=== PATIENT | female | born 2000 | race Caucasian/White ===

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

== ENCOUNTER 2021-02-25 13:35 | Outpatient (CLI) | payer SELFPAY ==
[~2021-02-25] VITALS: Ht 162.6 cm; Wt 58.8 kg
[2021-02-25 14:00] VITALS: BP 113/64
== END 2021-02-25 14:45 ==
LOC: WSo 13:35 → LDRP 13:36 → WSo 14:45
PROVIDERS: ATTEND Family Medicine
DX: O42.913 Preterm premature rupture of membranes, unspecified as to length of time between rupture and onset of labor, third trimester (principal); Z3A.35 35 weeks gestation of pregnancy
CPT/HCPCS: 99213

== ENCOUNTER 2021-03-12 19:50 | Outpatient (CLI) | payer MEDICAID ==
[~2021-03-12] VITALS: Ht 162.6 cm; Wt 59.9 kg
[2021-03-12 20:07] VITALS: BP 127/73
[2021-03-12 20:16] LABS: BILIRUBIN,URINE NEGATIVE (NEGATIVE); CLARITY,URINE CLEAR; COLOR,URINE YELLOW; GLUCOSE, URINE (UA) NEGATIVE (NEGATIVE); KETONES,URINE NEGATIVE (NEGATIVE); LEUKOCYTE ESTERASE ,URINE 2+ (NEGATIVE); NITRITE,URINE NEGATIVE (NEGATIVE); PROTEIN,URINE NEGATIVE (NEGATIVE)
[2021-03-12 20:52] LABS: BACTERIA,URINE MODERATE /HPF
[2021-03-12 20:53] LABS: SQUAMOUS EPITHELIAL CELL,UR 25-50 /HPF
--- NOTE | 2021-03-13 07:54 | Physician Query-Final Dx ---
NELLY03/13/21 0754: Clinic Account Progress/Dx Physician Query: Please give diagnosis Please include # weeks gestation Date of Service Mar 12, 2021 at 19:50 LARISSA JI MD 03/13/21 1422: Clinic Account Progress/Dx DIAGNOSIS: Diagnosis Term intrauterine at 38 weeks gestation Contractions without active labor NELLY,MarMar 13, 2021 07:54 LARISSA JI MD Mar 13, 2021 14:22
== END 2021-03-12 22:33 | disposition home or self-care (01) ==
LOC: LDRP 19:50 → WSo 19:50
PROVIDERS: ATTEND Family Medicine
DX: O46.93 Antepartum hemorrhage, unspecified, third trimester (principal); Z3A.38 38 weeks gestation of pregnancy
CPT/HCPCS: 81000; 87088

== ENCOUNTER 2021-03-14 19:32 | Inpatient (IN) | payer MEDICAID ==
[2021-03-14] VITALS (15 sets, daily range): BP systolic 119–136; BP diastolic 63–91
[~2021-03-14] VITALS: Ht 162.6 cm; Wt 59.9 kg
[2021-03-14] MEDS ORDERED: D5 LR IV SOLUTION 1,000 ML IV ONE (20:03)
[2021-03-14 20:13] LABS: BILIRUBIN,URINE NEGATIVE (NEGATIVE); CLARITY,URINE CLEAR; COLOR,URINE YELLOW; GLUCOSE, URINE (UA) NEGATIVE (NEGATIVE); KETONES,URINE NEGATIVE (NEGATIVE); LEUKOCYTE ESTERASE ,URINE 2+ (NEGATIVE); NITRITE,URINE NEGATIVE (NEGATIVE); PROTEIN,URINE NEGATIVE (NEGATIVE)
[2021-03-14] MEDS ORDERED: BUTORPHANOL INJ 2 MG/ML (STADOL) VIAL IV PRN (20:15)
[2021-03-14] MEDS ORDERED: D5 LR IV SOLUTION 1,000 ML IV SCH (20:15)
[2021-03-14 20:23] LABS: BASOPHILS % (AUTO) 0 % (0-10); MEAN PLATELET VOLUME 13.7 fL (9.0-12.2); NEUTROPHILS # (AUTO) 6.3 10^3/uL (1.8-7.8)
[2021-03-14 20:24] LABS: EOSINOPHILS % (AUTO) 0 % (0-10); HEMATOCRIT 38 % (35-52); HEMOGLOBIN 12.9 g/dL (11.5-16.0); LYMPHOCYTES # (AUTO) 1.5 10^3/uL (1.0-4.0); LYMPHOCYTES % (AUTO) 18 % (12-44); MEAN CORPUSCULAR HEMOGLOBIN 31 pg (25-34); MEAN CORPUSCULAR HGB CONC 34 g/dL (32-36); MEAN CORPUSCULAR VOLUME 91 fL (80-99); MONOCYTES # (AUTO) 0.5 10^3/uL (0.0-1.0); MONOCYTES % (AUTO) 6 % (0-12); NEUTROPHILS % (AUTO) 75 % (42-75); PLATELET COUNT 131 10^3/uL (130-400); WHITE BLOOD COUNT 8.3 10^3/uL (4.3-11.0)
[2021-03-14] MEDS ORDERED: BUTORPHANOL INJ 2 MG/ML (STADOL) VIAL ONE (20:26)
--- NOTE | 2021-03-14 20:31 | History & Physical-OB ---
OB - Chief Complaint & HPI Date/Time Date of Admission: Date of Admission: Date seen by a Provider: Mar 14, 2021 Time Seen by a Provider: 20:15 Chief Complaint/History OB-Reason for Admission/Chief: Onset of Labor Hx : 1 Hx Para: 0 Expected Date of Delivery: Mar 26, 2021 Gestational Age in Weeks: 38 Gestational Age in Days: 2 Admission Nurse Assessment Rev: Yes History of Labs GBS negative Allergies and Home Medications Allergies Coded Allergies: No Known Drug Allergies (Unverified , 01/31/18) Patient Home Medication List Home Medication List Reviewed: Yes No Active Prescriptions or Reported Meds OB - History Hx of Present Care: Yes Ultrasounds: Normal mid trimester US Obstetrical Complications: None Medical Complications: None Patient Past Medical History no chronic medical problems Social History/Family History 2nd Hand Smoke Exposure: No Immunizations Tetanus Booster (TDap): Unknown OB - Admission Exam Physical Exam Vitals: Vital Signs 03/14/21 19:50 Temp 36.1 Pulse 76 Resp 18 Pulse Ox 99 O2 Delivery Room Air HEENT: Moist Membranes Heart: Rhythm Normal Lungs: Clear Abdomen: Gravid Extremities: Normal Reflexes: Normal Cervical Dilatation: 6cm (on presentation) Effacement: 75% Station: -2 Membranes: Intact Accelerations: Accelerations Present Decelerations: No Decelerations Short Term Variability: Present [facility] Variability: Average (6-25) Contractions on Admission: < 5 Minutes Apart Intensity: Moderate Labs Laboratory Tests Test 03/14/21 19:45 03/14/21 20:11 Range/Units OB - Assessment/Plan/Diagnosis Assessment Assessment: active labor (at 38w2d) Admission Dx 1. IUP at term 38w2d Admission Status: Inpatient Order (span 2 midnights) Reason for Inpatient Admission: L&D Plan Plan: Expectant Management Other Plan -stadol 1mg q2hr prn pain YASIR WIGGINS MD Mar 14, 2021 20:31
[2021-03-14 20:51] LABS: BACTERIA,URINE NEGATIVE /HPF; RBC,URINE 0-2 /HPF
[2021-03-14] MEDS ORDERED: fentaNYL 2 mcg/ml BUPIVA 0.125 100 ML ONE (20:54)
[2021-03-14] MEDS ORDERED: fentaNYL INJ 100 MCG/2 ML AMP ONE (21:31)
[2021-03-14] MEDS ORDERED: BUPIVACAINE 0.25% 30 ML (SENSORCAINE) VIAL ONE (21:31)
[2021-03-14] MEDS ORDERED: CATHETER FLUSH 10 ML SYR IV SCH (22:00)
[2021-03-14] MEDS ORDERED: EPIDURAL (fentaNYL 2 MCG/ML BUPIVA 0.125%)100 ML BAG EPI PRN (22:15)
[2021-03-14] MEDS ORDERED: NALOXONE 0.4 MG/ML 1 ML (NARCAN) VIAL IV PRN (22:15)
[2021-03-14] MEDS ORDERED: LACTATED RINGERS 1,000 ML IV SCH (22:15)
[2021-03-14] MEDS ORDERED: ONDANSETRON 4 MG/2 ML (SDV) Z0FRAN IV PRN (22:15)
[2021-03-14] MEDS ORDERED: diphenhydrAMINE 50 MG/ML INJ (BENADRYL) IV PRN (22:15)
[2021-03-15] VITALS (13 sets, daily range): BP systolic 108–139; BP diastolic 55–80
[2021-03-15] MEDS ORDERED: MINERAL OIL CONCENTRATE 99.9% 15 ML UDC ONE (03:49)
[2021-03-15] MEDS ORDERED: MEPIVACAINE (CARBOCAINE) 2% 50 ML VIAL ONE (03:49)
[2021-03-15] MEDS ORDERED: OXYTOCIN PRE-MIX DRIP 500 ML IV ONE (03:49)
--- NOTE | 2021-03-15 05:03 | OB Labor & Delivery Record ---
L&D History Date of Service Date of Service: Mar 15, 2021 History Expected Date of Delivery: Mar 26, 2021 Gestational Age in Weeks: 38 Hx : 1 Hx Para: 1 Complications Events: Routine care Operative Indications (Cesarea: N/A-Vaginal Delivery Intrapartal Events: None L&D Stage1 Stage One Onset of Labor - Date: Mar 14, 2021 Onset of Labor - Time: 18:00 Monitors and Tracing Monitor Mode: External Heart Rate: 150 Monitor Accelerations: Uniform Monitor Decelerations: Variable Station: 0 Half-Way Variability: Average (6-10) Short Term Variability: Present Presentation: Vertex Vital Signs VS - Last 72 Hours, by Label 03/14/21 03/14/21 03/14/21 03/14/21 19:50 20:25 20:55 21:06 Temp 36.1 36.6 36.6 Pulse 76 88 87 88 Resp 18 18 18 18 B/P (MAP) 131/72 (91) 127/83 (98) Pulse Ox 99 99 99 O2 Delivery Room Air Room Air Room Air 03/14/21 03/14/21 03/14/21 03/14/21 21:07 21:35 21:39 21:48 Temp 36.6 Pulse 88 85 83 85 Resp 18 18 18 18 B/P (MAP) 129/83 (98) 136/85 (102) 131/89 (103) Pulse Ox 99 99 99 99 O2 Delivery Room Air 03/14/21 03/14/21 03/14/21 03/14/21 21:51 21:53 21:57 22:05 Pulse 86 97 83 83 Resp 18 18 18 18 B/P (MAP) 128/85 (99) 132/78 (96) 130/82 (98) 119/64 (82) Pulse Ox 100 100 99 100 03/14/21 03/14/21 03/14/21 03/15/21 22:10 22:15 23:20 00:20 Temp 36.5 36.4 Pulse 84 97 82 89 Resp 18 18 18 18 B/P (MAP) 124/66 (85) 135/63 (87) 122/71 (88) 117/70 (86) Pulse Ox 100 100 100 100 03/15/21 03/15/21 03/15/21 02:05 02:50 03:15 Temp 37.0 37.0 37.6 Pulse 96 86 Resp 18 18 B/P (MAP) 119/71 (87) 117/72 (87) Pulse Ox 100 Signs of Distress by FHT Signs of Distress no Rupture of Membranes Spontaneous Ruture of Membrane: No Amniotic Membrane Rupture Time: 211 Amniotic Membrane Fluid Desc.: Clear Induction/Anesthesia Epidural Cath Placement - Time: 2150 L&D Stage2 Stage Two Stage II Date: Mar 15, 2021 Stage II Time: 04:29 Monitors and Tracing Monitor Mode: Internal Heart Rate: 150 Monitor Accelerations: Uniform Monitor Decelerations: Variable Snowblower Mechanic Variability: Average (6-10) Short Term Variability: Present Position: Right Occiput Anterior Presentation: Vertex Signs of Distress by FHT Signs of Distress no Cord Descript/Complications Cord Vessel Description: 3 Vessels Delivery Type Infant Delivery Method: Spontaneous Vaginal Anterior Shoulder: Right Episiotomy/Perineal Laceration Laceraction(s)/Extensions: Yes Episiotomy Description: Midline, Vaginal Extension/lac (L) Sutures Used: Vicryl Condition of Delivery 1 minute Comment: 8 5 minute Comment: 9 Condition of Infant Condition of : Living Exam: No Observed Abnormalities Resuscitation Resuscitation: N/A - Spontaneous Resp L&D Stage3 Stage Three Stage III Date: Mar 15, 2021 Stage III Time: 04:34 Pictocin Pitocin ml/hr: 125 Placenta Delivery Placenta Delivery: Spontaneous Delivery Summary Summary Estimated blood loss (mL): 200 Condition of Delivery Examined: Cervix Examined Post Hemorrhage: No Intervention Required none, uterine massage YASIR WIGGINS MD Mar 15, 2021 05:03
[2021-03-15] MEDS ORDERED: IBUPROFEN 600 MG (MOTRIN) TAB PO ONE (05:09)
[2021-03-15] MEDS ORDERED: BENZOCAINE/MENTHOL (DERMOPLAST) 56 ML CAN TP ONE (05:09)
[2021-03-15] MEDS ORDERED: BENZOCAINE/MENTHOL (DERMOPLAST) 56 ML CAN TP PRN ×2 (05:15→05:45)
[2021-03-15] MEDS: IBUPROFEN 600 MG (MOTRIN) TAB PO SCH ×3 (05:15→20:38)
[2021-03-15] MEDS ORDERED: OXYTOCIN PRE-MIX DRIP 500 ML IV SCH (05:15)
[2021-03-15] MEDS ORDERED: WITCH HAZEL(TUCKS) 40 EA JAR TOP PRN (05:15)
[2021-03-15] MEDS ORDERED: TETANUS,DIPTH,PERTUSS P/F (BOOSTRIX) 0.5 ML VIAL IM ONE (05:15)
[2021-03-15] MEDS ORDERED: NALOXONE 0.4 MG/ML 1 ML (NARCAN) VIAL IV PRN (05:15)
[2021-03-15] MEDS ORDERED: MEASLES,MUMPS,RUBELLA 1 EA INJ SQ ONE (05:15)
[2021-03-15] MEDS: CATHETER FLUSH 10 ML SYR IV SCH ×3 (06:48→22:06)
[2021-03-15] MEDS: ACETAMINOPHEN 500 MG TAB (TYLENOL) PO SCH ×3 (10:15→20:49)
[2021-03-15] MEDS: DOCUSATE SODIUM 100 MG (COLACE) CAP PO SCH ×2 (10:15→20:38)
[2021-03-16] MEDS: ACETAMINOPHEN 500 MG TAB (TYLENOL) PO SCH ×2 (02:40→08:39)
[2021-03-16] MEDS: IBUPROFEN 600 MG (MOTRIN) TAB PO SCH ×2 (02:41→08:39)
[2021-03-16 02:49] VITALS: BP 115/77
[2021-03-16] MEDS: CATHETER FLUSH 10 ML SYR IV SCH (06:03)
[2021-03-16 07:37] LABS: EOSINOPHILS # (AUTO) 0.1 10^3/uL (0.0-0.3); MEAN CORPUSCULAR VOLUME 92 fL (80-99)
[2021-03-16 07:39] LABS: BASOPHILS % (AUTO) 0 % (0-10); EOSINOPHILS % (AUTO) 1 % (0-10); HEMATOCRIT 29 % (35-52); HEMOGLOBIN 9.9 g/dL (11.5-16.0); LYMPHOCYTES # (AUTO) 1.5 10^3/uL (1.0-4.0); LYMPHOCYTES % (AUTO) 18 % (12-44); MEAN CORPUSCULAR HEMOGLOBIN 31 pg (25-34); MEAN CORPUSCULAR HGB CONC 34 g/dL (32-36); MONOCYTES # (AUTO) 0.5 10^3/uL (0.0-1.0); MONOCYTES % (AUTO) 6 % (0-12); NEUTROPHILS # (AUTO) 6.2 10^3/uL (1.8-7.8); NEUTROPHILS % (AUTO) 74 % (42-75); PLATELET COUNT 106 10^3/uL (130-400); WHITE BLOOD COUNT 8.4 10^3/uL (4.3-11.0)
[2021-03-16 08:37] VITALS: BP 118/71
[2021-03-16] MEDS: DOCUSATE SODIUM 100 MG (COLACE) CAP PO SCH (08:39)
[2021-03-16] MEDS ORDERED: FERR-74 PO (09:41)
[2021-03-16] MEDS ORDERED: DOCU100C37 PO (09:41)
[2021-03-16] MEDS ORDERED: PREN-142 PO (09:41)
[2021-03-16] MEDS ORDERED: IBUP-844 PO (09:41)
--- NOTE | 2021-03-16 10:17 | Discharge Summary ---
Discharge Summary Hospital Course Hospital Course Date of Admission: Mar 14, 2021 at 20:01 Admission Diagnosis : Term intrauterine at 39 weeks gestation HTN GBS positive Rubella immune Family Physician/Provider: ErikaLocal Physician Date of Discharge: 03/16/21 Discharge Diagnosis: s/p spontaneous vaginal delivery elevated blood pressure Hospital Course: Pt admitted for IOL for intermittent gestation vs chronic HTN. Unremarkable labor, delivery and course. Labs and Pending Lab Test: Laboratory Tests 03/15/21 10:35: Hepatitis B Surface Antigen Non-Reactive 03/16/21 07:20: White Blood Count 8.4, Red Blood Count 3.15L, Hemoglobin 9.9#L, Hematocrit 29L, Mean Corpuscular Volume 92, Mean Corpuscular Hemoglobin 31, Mean Corpuscular Hemoglobin Concent 34, Red Cell Distribution Width 13.3, Platelet Count 106L, Mean Platelet Volume 13.0H, Immature Granulocyte % (Auto) 1, Neutrophils (%) (Auto) 74, Lymphocytes (%) (Auto) 18, Monocytes (%) (Auto) 6, Eosinophils (%) (Auto) 1, Basophils (%) (Auto) 0, Neutrophils # (Auto) 6.2, Lymphocytes # (Auto) 1.5, Monocytes # (Auto) 0.5, Eosinophils # (Auto) 0.1, Basophils # (Auto) 0.0, Immature Granulocyte # (Auto) 0.0, Percent Immature Platelet Fraction 16.1H Microbiology 03/14/21 Urine Culture - Preliminary, Resulted Slight Growth Present Home Meds Active Docusate Sodium 100 Mg Capsule 100 Mg PO BID Ferrous Sulfate 325 Mg Tablet 325 Mg PO DAILY Vitamin Tablet ( Vit No.124/Iron/FA) 1 Each Tablet 1 Each PO DAILY Ibu (Ibuprofen) 600 Mg Tablet 600 Mg PO Q6HR PRN Assessment/Pt DC Instructions Follow up with Dr. Batres for visit in 6 weeks. Monitor blood pressure with home cuff closely this week and call if above 140/90. Discharge Diet: No Restrictions Activity as Tolerated: Yes (avoid strenous activity x 6 weeks) Discharge Physical Examination Allergies: Coded Allergies: No Known Drug Allergies (Unverified , 01/31/18) General Appearance: No Apparent Distress Respiratory: Lungs Clear, Normal Breath Sounds Cardiovascular: Regular Rate, Rhythm, No Murmur Skin: Normal Color, Warm/Dry Neurologic/Psychiatric: Alert, No Motor/Sensory Deficits LARISSA BATRES MD Mar 16, 2021 10:17
--- NOTE | 2021-03-16 13:16 | Discharge Summary ---
Discharge Summary Hospital Course Hospital Course Date of Admission: Mar 14, 2021 at 20:01 Admission Diagnosis : Term intrauterine Active labor Family Physician/Provider: ErikaLocal Physician Date of Discharge: 03/16/21 Discharge Diagnosis: S/p spontaneous vaginal delivery acute blood loss anemia RPR, rubella and HIV status pending at d/c Hospital Course: Pt admitted in active labor, had unremarkable delivery and course. Labs and Pending Lab Test: Laboratory Tests 03/16/21 07:20: White Blood Count 8.4, Red Blood Count 3.15L, Hemoglobin 9.9#L, Hematocrit 29L, Mean Corpuscular Volume 92, Mean Corpuscular Hemoglobin 31, Mean Corpuscular Hemoglobin Concent 34, Red Cell Distribution Width 13.3, Platelet Count 106L, Mean Platelet Volume 13.0H, Immature Granulocyte % (Auto) 1, Neutrophils (%) (Auto) 74, Lymphocytes (%) (Auto) 18, Monocytes (%) (Auto) 6, Eosinophils (%) (Auto) 1, Basophils (%) (Auto) 0, Neutrophils # (Auto) 6.2, Lymphocytes # (Auto) 1.5, Monocytes # (Auto) 0.5, Eosinophils # (Auto) 0.1, Basophils # (Auto) 0.0, Immature Granulocyte # (Auto) 0.0, Percent Immature Platelet Fraction 16.1H Microbiology 03/14/21 Urine Culture - Preliminary, Resulted Slight Growth Present Home Meds Active Docusate Sodium 100 Mg Capsule 100 Mg PO BID Ferrous Sulfate 325 Mg Tablet 325 Mg PO DAILY Vitamin Tablet ( Vit No.124/Iron/FA) 1 Each Tablet 1 Each PO DAILY Ibu (Ibuprofen) 600 Mg Tablet 600 Mg PO Q6HR PRN Assessment/Pt DC Instructions Follow up with Dr. Black in 6 weeks for visit. Discharge Diet: No Restrictions Activity as Tolerated: Yes (avoid strenuous activity x 6 weeks) Discharge Physical Examination Allergies: Coded Allergies: No Known Drug Allergies (Unverified , 01/31/18) General Appearance: No Apparent Distress, WD/WN Respiratory: Lungs Clear, Normal Breath Sounds Cardiovascular: Regular Rate, Rhythm, No Murmur Gastrointestinal: Other (fundus firm below umbilicus) Extremity: No Pedal Edema Skin: Normal Color, Warm/Dry Neurologic/Psychiatric: Alert, Normal Mood/Affect LARISSA JI MD Mar 16, 2021 13:16
--- NOTE | 2021-03-17 11:01 | Anesthesia-Regional Post-Op ---
Regional Patient Condition Mental Status: Alert, Oriented x3 Circulation: Same as Pre-Op Headache: Absent Sensation: Full Recovery Motor Block: Absent Post Op Complications Complications None Follow Up Care/Instructions Patient Instructions None needed. Anesthesia/Patient Condition Patient is doing well, no complaints, stable vital signs, no apparent adverse anesthesia problems. No complications reported per nursing. TEE MITCHELL CRNA Mar 17, 2021 11:01
== END 2021-03-16 12:45 | disposition home or self-care (01) | DRG 806 ==
LOC: LDRP 19:32 → WSo 19:32 → LDRP 20:01
PROVIDERS: ADMIT Family Medicine; ATTEND Family Medicine
PROC: 10E0XZZ Delivery of Products of Conception, External Approach (ICD-10-PCS; principal; 2021-03-15)
PROC: 0UQGXZZ Repair Vagina, External Approach (ICD-10-PCS; 2021-03-15)
DX: O13.4 Gestational [pregnancy-induced] hypertension without significant proteinuria, complicating childbirth (principal); D62 Acute posthemorrhagic anemia; Z37.0 Single live birth; O99.824 Streptococcus B carrier state complicating childbirth; Z3A.39 39 weeks gestation of pregnancy; O71.4 Obstetric high vaginal laceration alone; O90.81 Anemia of the puerperium
CPT/HCPCS: 36415; 81000; 85025; 86703; 86762; 86780; 86850; 86900; 86901; 87088; 87340; 87350; 99212